=== PATIENT | female | born 1995 | race Two or more races ===

== ENCOUNTER 2019-04-18 16:52 | Emergency (ER) | payer OTHER ==
[~2019-04-18] VITALS: Ht 162.6 cm; Wt 69.4 kg
[2019-04-18 16:59] VITALS: Ht 162.6 cm; Wt 69.4 kg
[2019-04-18 20:00] VITALS: BP 126/58
== END 2019-04-18 20:00 | disposition home or self-care (01) ==
LOC: ED 16:52
DX: J20.9 Acute bronchitis, unspecified (principal)
CPT/HCPCS: J0171; J7512; J7613; J7644